=== PATIENT | male | born 1970 | race Caucasian/White ===

== ENCOUNTER 2022-10-14 20:10 | Emergency (ER) | payer OTHER ==
[~2022-10-14] VITALS: Ht 177.8 cm; Wt 79.5 kg
[2022-10-14] MEDS ORDERED: CRES20TA2 PO (20:51)
[2022-10-14] MEDS ORDERED: ASPI81CH33 PO (20:51)
[2022-10-14 21:33] LABS: BASO % 0.5 % (0.0-1.0); EOS # 0.1 10^3/uL (0.0-0.5); EOS % 1.1 % (0.0-3.0); HEMATOCRIT 45.1 % (42.0-52.0); HEMOGLOBIN 14.7 g/dl (13.5-17.5); LYMPH # 2.5 10^3/uL (1.5-5.0); LYMPH % 37.2 % (24.0-44.0); MEAN CORPUSCULAR HEMOGLOBIN 28.8 pg (27.0-33.0); MEAN CORPUSCULAR HGB CONC 32.6 g/dl (32.0-36.5); MEAN CORPUSCULAR VOLUME 88.3 fl (80.0-96.0); MONO # 0.6 10^3/uL (0.0-0.8); MONO % 9.1 % (2.0-8.0); NEUTROPHILS # 3.4 10^3/uL (1.5-8.5); NEUTROPHILS % 51.8 % (36.0-66.0); PLATELET COUNT, AUTOMATED 180 10^3/uL (150-450); RED BLOOD COUNT 5.11 10^6/uL (4.30-6.10); WHITE BLOOD COUNT 6.6 10^3/uL (4.0-10.0)
[2022-10-14 22:24] LABS: CHLORIDE LEVEL 100 MMOL/L (98-107); CK-MB VALUE MASS < 1.0 NG/ML (<3.6); POTASSIUM SERUM 4.3 MMOL/L (3.5-5.1); SODIUM LEVEL 140 MMOL/L (136-145)
[2022-10-14 22:35] LABS: ALBUMIN 4.2 G/DL (3.2-5.2); ALKALINE PHOSPHATASE 50 U/L (46-116); ALT/SGPT 64 U/L (7.0-40); AST/SGOT 39 U/L (<34); BILIRUBIN,DIRECT 0.2 MG/DL (<0.4); BILIRUBIN,TOTAL 0.5 MG/DL (0.3-1.2); BLOOD UREA NITROGEN 19 MG/DL (9-23); CALCIUM LEVEL 9.3 MG/DL (8.5-10.1); CARBON DIOXIDE LEVEL 30 MMOL/L (20-31); CPK CREATINE PHOSPHOKINASE 204 U/L (46-171); CREATININE FOR GFR 0.87 MG/DL (0.70-1.30); GLOMERULAR FILTRATION RATE > 60.0 (>60); GLUCOSE, FASTING 90 MG/DL (60-100); MB/CK RELATIVE INDEX 0.49 (< OR =4); TOTAL PROTEIN 6.8 G/DL (5.7-8.2)
[2022-10-14] MEDS ORDERED: ISOVUE-370 76% 100ML VIAL As Ordered ONE (22:58)
[2022-10-14 23:16] LABS: CK-MB VALUE MASS < 1.0 NG/ML (<3.6)
[2022-10-14 23:24] LABS: RSV AMPLIFICATION NEGATIVE (NEGATIVE)
[2022-10-14 23:25] LABS: CPK CREATINE PHOSPHOKINASE 215 U/L (46-171); MB/CK RELATIVE INDEX 0.46 (< OR =4)
[2022-10-15] MEDS ORDERED: KETO10TAB PO (00:25)
[2022-10-15 00:30] VITALS: BP 124/76
[2022-10-15] MEDS ORDERED: KETOROLAC 30 MG/ML 1ML VIAL IV ONE (01:00)
== END 2022-10-15 00:41 | disposition home or self-care (01) ==
LOC: M ED 20:10
DX: R07.89 Other chest pain (principal); R06.02 Shortness of breath; R00.1 Bradycardia, unspecified; I10 Essential (primary) hypertension; G89.29 Other chronic pain; M54.9 Dorsalgia, unspecified; Z86.73 Personal history of transient ischemic attack (TIA), and cerebral infarction without residual deficits; Z79.899 Other long term (current) drug therapy
CPT/HCPCS: 71045; 71275; 80048; 80076; 82550; 82553; 84484; 85025; 87486; 87581; 87631; 87633; 87798; 93005; 96374; 99284; J1885

== ENCOUNTER → 2023-01-29 | Outpatient (CLI) | payer OTHER ==
[~2023-01-29] MED LIST: ASPI81CH33 PO; CRES20TA2 PO; ISOVUE-370 76% 100ML VIAL As Ordered ONE; KETO10TAB PO
== END ==
LOC: M RAD 08:05
PROVIDERS: ATTEND Psychiatry & Neurology Neurology
DX: I63.032 Cerebral infarction due to thrombosis of left carotid artery (principal); Z86.73 Personal history of transient ischemic attack (TIA), and cerebral infarction without residual deficits

== ENCOUNTER 2023-04-30 07:02 | Day surgery (SDC) | payer OTHER ==
[~2023-04-30] VITALS: Ht 180.3 cm; Wt 85.7 kg
[~2023-04-30 07:02] MED LIST changes: +AMLO1TAB24 PO; -ISOVUE-370 76% 100ML VIAL As Ordered ONE; +NS 1,000 ML IV ONE; +ROSU20TA5 PO
[2023-04-30] MEDS ORDERED: LIDOCAINE 2% 100MG/5ML SDV (FOR ANES.) As Ordered ONE (07:40)
[2023-04-30] MEDS ORDERED: propofoL 200 MG/20 ML VIAL As Ordered ONE (07:40)
[2023-04-30 08:40] VITALS: BP 130/74; O2SAT 100
== END 2023-04-30 08:42 | disposition home or self-care (01) ==
LOC: M OPP 07:02
PROVIDERS: ATTEND Internal Medicine Gastroenterology
DX: Z12.11 Encounter for screening for malignant neoplasm of colon (principal); K64.0 First degree hemorrhoids; I10 Essential (primary) hypertension; E78.5 Hyperlipidemia, unspecified; M19.90 Unspecified osteoarthritis, unspecified site; Z86.73 Personal history of transient ischemic attack (TIA), and cerebral infarction without residual deficits; Z79.82 Long term (current) use of aspirin; Z79.899 Other long term (current) drug therapy